=== PATIENT | male | born 1990 | race Caucasian/White ===

== ENCOUNTER 2017-06-06 17:58 | Emergency (ER) | payer OTHER ==
[2017-06-06 18:17] VITALS: BP 131/82
--- NOTE | 2017-06-06 18:32 | ED Physician Documentation ---
PD HPI UPPER EXT INJURY - Stated complaint Stated Complaint: HAND LAC - Chief complaint Chief Complaint: Laceration - History obtained from History obtained from: Patient - History of Present Illness Location: Right, Hand (webbing between thumb and index finger.) Type of injury: Laceration (from edge of cut glass.) Where injury occurred: Home Timing - onset: Today Associated symptoms: No: Weakness, Numbness Similar symptoms before: Has not had sx before Recently seen: Not recently seen Review of Systems Constitutional: denies: Fever, Chills Neurologic: denies: Focal weakness, Numbness PD PAST MEDICAL HISTORY - Past Medical History Musculoskeletal: None - Present Medications Home Medications: Ambulatory Orders Medication Instructions Recorded Confirmed No Known Home Medications [No 06/06/17 06/06/17 Known Home Medications] - Allergies Allergies/Adverse Reactions: Allergies Allergy/AdvReac Type Severity Reaction Status Date / Time No Known Drug Allergies Allergy Verified 06/06/17 18:17 PD ED PE NORMAL - Vitals Vital signs reviewed: Yes - General General: Alert and oriented X 3, No acute distress, Well developed/nourished - Derm Derm: Normal color, Warm and dry - Extremities Extremities: Other (right hand with lac in web between thumb and index, to fatty tissue. No numbness nor weakness. No FB.) - Neuro Neuro: No motor deficit, No sensory deficit Results - Vitals Vitals: Oxygen O2 Source Room air Procedures - Laceration (location) right hand Length in cm: 1.5 Wound type: Linear, Into subcut fat, Clean Neurovascular status: Sensory intact, Motor intact, Vascular intact Tendon involvement: Tendon intact Anesthesia: Lidocaine 1% with epi Wound Preparation: Irrigated copiously NS Skin layer closure: Nylon, Interrupted, Size #-0 - enter number (4) Other: Patient tolerated well, No complications, Neurovascular intact, Tetanus UTD Complexity: Simple PD MEDICAL DECISION MAKING - ED course Complexity details: considered differential, d/w patient Departure - Departure Disposition: 01 Home, Self Care Clinical Impression: Laceration of hand Qualifiers: Encounter type: initial encounter Foreign body presence: without foreign body Laterality: right Qualified Code(s): S61.411A - Laceration without foreign body of right hand, initial encounter Condition: Stable Record reviewed to determine appropriate education?: Yes Instructions: ED Laceration Hand Follow-Up: YANA Mcdonough [Provider Group] Comments: It is okay to wash and shower. Clean off the wound twice a day with soap and water, or peroxide and water. Apply some antibiotic ointment to it to keep it moist. Also to watch for signs of infection such as purulence, redness or increasing pain. Return to your primary care or the ER at the specified time for suture removal. Tylenol or ibuprofen if needed for pains. Suture removal in about 10 days. Discharge Date/Time: 06/06/17 18:57
== END 2017-06-06 18:57 | disposition home or self-care (01) ==
LOC: ED 17:58
DX: S61.411A Laceration without foreign body of right hand, initial encounter (principal); W25.XXXA Contact with sharp glass, initial encounter; Y92.009 Unspecified place in unspecified non-institutional (private) residence as the place of occurrence of the external cause
CPT/HCPCS: 12001; 99282; 99283

== ENCOUNTER 2018-10-26 15:23 | Outpatient (CLI) | payer OTHER | END 2018-10-26 15:24 | disposition home or self-care (01) | LOC: SC 15:23 | PROVIDERS: ATTEND Internal Medicine Pulmonary Disease | DX: R06.83 Snoring (principal); R06.81 Apnea, not elsewhere classified; G47.8 Other sleep disorders; R41.89 Other symptoms and signs involving cognitive functions and awareness; G47.10 Hypersomnia, unspecified | CPT/HCPCS: 99203; 99212 ==

== ENCOUNTER 2018-11-15 19:15 | Outpatient (CLI) | payer OTHER | END 2018-11-15 19:16 | disposition home or self-care (01) | LOC: SC 19:15 | PROVIDERS: ATTEND Internal Medicine Pulmonary Disease | DX: G47.61 Periodic limb movement disorder (principal) | CPT/HCPCS: 95810 ==

== ENCOUNTER 2019-01-06 14:33 | Outpatient (CLI) | payer OTHER | END 2019-01-06 14:34 | disposition home or self-care (01) | LOC: SC 14:33 | PROVIDERS: ATTEND Nurse Practitioner Family | DX: R06.83 Snoring (principal); R53.83 Other fatigue; G47.61 Periodic limb movement disorder | CPT/HCPCS: 99212; 99214 ==